=== PATIENT | female | born 1960 | race African-American/Black ===

== ENCOUNTER 2018-03-19 12:51 | Emergency (ER) | payer BC ==
[~2018-03-19] VITALS: Ht 162.6 cm; Wt 54.4 kg
[2018-03-19] MEDS ORDERED: TORADOL IV STA (13:28)
[2018-03-19] MEDS ORDERED: NS 1000ML 1,000 ML STA (13:28)
[2018-03-19 13:31] VITALS: BP 145/92
[2018-03-19 13:41] LABS: BASOPHIL % 0.2 % (0.0-0.2); EOSINOPHIL # 0.1 10^3/uL (0.0-0.2); EOSINOPHIL % 0.9 % (0.0-5.0); HEMOGLOBIN 13.3 g/dL (12.0-15.0); LYMPHOCYTES # 1.5 10^3/uL (1.0-4.8); LYMPHOCYTES % 26.2 % (24.0-44.0); MEAN CELL HGB 26.2 pg (26-34); MEAN CELL HGB CONCENTRATION 34.4 g/dL (33-37); MEAN CORP VOLUME 76.3 fL (78-100); MEAN PLATELET VOLUME 8.8 fL (7.8-11.0); MONOCYTES # 0.6 10^3/uL (0.3-0.8); MONOCYTES % 9.9 % (5.0-12.0); NEUTROPHIL # 3.7 10^3/uL (1.8-7.7); NEUTROPHILS % 62.6 % (41.0-85.0); RED CELL DISTRIBUTION WIDTH 12.7 % (11.5-14.5); WHITE BLOOD CELL 5.9 10^3/uL (4.5-11.0)
[2018-03-19 13:59] LABS: CALCIUM 9.1 mg/dL (8.4-10.5); CARBON DIOXIDE 29.8 mmol/L (20.0-32)
--- NOTE | 2018-03-19 14:18 | DIREP ---
PROCEDURE:XRAY ACUTE ABD INCL UPRIGHT CHEST COMPARISON:[facility], CR, XRAY ACUTE ABD INCL UPRIGHT CHEST, 12/23/2017, 01:07 PM. INDICATIONS:Abdominal pain, back pain TECHNIQUE:Flat and upright views of the abdomen and a PA view of the chest are provided. FINDINGS: LUNGS/PLEURA:Normal. CARDIAC:Normal. MEDIASTINUM:Normal. BONES:Mild scoliosis BOWEL GAS PATTERN: Large stool burden. No air-fluid levels. FREE AIR:None. CALCIFICATIONS:None significant. OTHER:Negative. CONCLUSION:Large stool burden otherwise nonspecific bowel gas pattern. Dictated by: Min Power MD on 03/19/2018 at 02:15 PM
[2018-03-19 14:25] LABS: BILIRUBIN,URINE NEGATIVE (NEGATIVE); UROBILINOGEN,URINE NORMAL (NEGATIVE)
[2018-03-19] MEDS ORDERED: NS 1000ML 1,000 ML ONE (14:26)
[2018-03-19] MEDS ORDERED: TORADOL ONE (14:26)
[2018-03-19 14:28] LABS: APPEARANCE,URINE CLEAR (CLEAR); UA COLOR YELLOW (YELLOW)
--- NOTE | 2018-03-19 14:38 | ER.PDOC ---
General Chief Complaint: Abdomen Pain Stated Complaint: BACK PAIN AND CONSTIPATION Time seen by MD: 13:30 Source: patient Exam Limitations: no limitations History of Present Illness Initial Comments Pt with history of chronic constipation and arthritis, has lower abdominal pain on and off, crampy and has not been defecating properly Severity/Quality: moderate Radiation: no radiation Associated Symptoms: back pain Exacerbated by: movements Allergies: Coded Allergies: No Known Allergies (Unverified , 03/19/18) Vital Signs First Vital Signs Date Time Temp Pulse Resp B/P (MAP) Pulse Ox O2 Delivery O2 Flow Rate FiO2 03/19/18 12:55 98.4 85 16 98 Room Air 98.4 03/19/18 13:31 145/92 (109) Last Vital Signs Date Time Temp Pulse Resp B/P (MAP) Pulse Ox O2 Delivery O2 Flow Rate FiO2 03/19/18 13:31 98.4 85 18 145/92 (109) 98 Room Air 98.4 Past Medical History Medical History: diabetes, other Surgical History: tubal LMP (females 10-50): hysterectomy Social History Smoking: non-smoker Alcohol Use: none Drug Use: none Constitutional: no symptoms reported EENTM: no symptoms reported Respiratory: no symptoms reported Cardiovascular: no symptoms reported Gastrointestinal: see HPI Genitourinary: no symptoms reported Musculoskeletal: see HPI, back pain Skin: no symptoms reported Psychiatric/Neurological: no symptoms reported Endocrine: no symptoms reported Hematologic/Lymphatic: no symptoms reported Physical Exam General Appearance: No Apparent Distress, WD/WN HEENT: PERRL/EOMI, Normal ENT Inspection, TMs Normal, Pharynx Normal Neck: Non-Tender, Full Range of Motion, Supple, Normal Inspection Respiratory: chest non-tender, lungs clear, normal breath sounds, no respiratory distress, no accessory muscle use Cardiovascular: Normal Peripheral Pulses, Regular Rate, Rhythm, No Edema, No Gallop, No JVD, No Murmur Gastrointestinal: Normal Bowel Sounds, Soft, Tenderness (mild llq) Back: Normal Inspection, No CVA Tenderness, No Vertebral Tenderness Extremities: Normal Range of Motion, Non-Tender, Normal Inspection, No Pedal Edema, No Calf Tenderness, Normal Capillary Refill, Pelvis Stable Neurologic/Psychiatric: produce assistant II-XII NML as Tested, No Motor/Sensory Deficits, Alert, Normal Mood/Affect, Oriented x 3 Skin: Normal Color, Warm/Dry Lymphatic: No Adenopathy Results/Orders Results/Orders Laboratory Tests Test 03/19/18 00:00 03/19/18 13:35 Urine Collection Type CCMS Urine Color YELLOW (YELLOW) Urine Appearance CLEAR (CLEAR) Urine Bilirubin NEGATIVE MG/DL (NEGATIVE) Urine Ketones NEGATIVE (NEGATIVE) Urine Specific [place] 1.005 (1.005-1.035) Urine pH 7 (5.0-6.0) Urine Protein NEGATIVE (NEGATIVE) Urine Urobilinogen NORMAL (NEGATIVE) Urine Nitrate NEGATIVE (NEGATIVE) Urine Leukocyte Esterase NEGATIVE (NEGATIVE) Urine Blood NEGATIVE (NEGATIVE) Urine Glucose 1000 (NEGATIVE) White Blood Count 5.9 10^3/uL (4.5-11.0) Red Blood Count 5.07 10^6/uL (4.00-5.20) Hemoglobin 13.3 g/dL (12.0-15.0) Hematocrit 38.7 % (36.0-46.0) Mean Corpuscular Volume 76.3 fL (78-100) Mean Corpuscular Hemoglobin 26.2 pg (26-34) Mean Corpuscular Hemoglobin Concent 34.4 g/dL (33-37) Red Cell Distribution Width 12.7 % (11.5-14.5) Platelet Count 248 10^3/uL (150-400) Mean Platelet Volume 8.8 fL (7.8-11.0) Neutrophils (%) (Auto) 62.6 % (41.0-85.0) Lymphocytes (%) (Auto) 26.2 % (24.0-44.0) Monocytes (%) (Auto) 9.9 % (5.0-12.0) Neutrophils # (Auto) 3.7 10^3/uL (1.8-7.7) Lymphocytes # (Auto) 1.5 10^3/uL (1.0-4.8) Monocytes # (Auto) 0.6 10^3/uL (0.3-0.8) Absolute Immature Granulocyte (auto 0.01 10^3 u/L (0-2) Eosinophils % 0.9 % (0.0-5.0) Basophils % 0.2 % (0.0-0.2) Basophils # 0.0 10^3/uL (0.0-0.1) Eosinophil Count 0.1 10^3/uL (0.0-0.2) Sodium Level 137 mmol/L (132-145) Potassium Level 3.2 mmol/L (3.6-5.2) Chloride Level 103.0 mmol/L (96-109) Carbon Dioxide Level 29.8 mmol/L (20.0-32) Anion Gap 7.4 Blood Urea Nitrogen 10 mg/dL (7-18) Creatinine 0.81 mg/dL (0.59-1.40) Estimated GFR () 87.6 (>/=60) BUN/Creatinine Ratio 12.0 Glucose Level 284 mg/dL (70-110) Calcium Level 9.1 mg/dL (8.4-10.5) Total Bilirubin 0.6 mg/dL (0.2-1.0) Aspartate Amino Transf (AST/SGOT) 11 U/L (0-35) Alanine Aminotransferase (ALT/SGPT) 11 U/L (12-78) Alkaline Phosphatase 70 U/L (50-136) Total Protein 7.0 g/dL (6.4-8.2) Albumin 3.3 g/dL (3.4-5.0) Globulin 3.7 Amylase Level 30 U/L (25-115) Lipase 71 U/L (114-286) Percent Immature Gran (Cell Imm) 0.20 % (0.00-0.50) Administered Medications Medications (Trade) Dose Ordered Sig/Jake Route PRN Reason Start Time Stop Time Status Last Admin Dose Admin Sodium Chloride 1,000 ml @ 1,000 mls/hr Q1H STAT IV 03/19/18 13:28 03/19/18 14:27 DC 03/19/18 14:29 Ketorolac Tromethamine (Toradol) 30 mg STAT STAT IV 03/19/18 13:28 03/19/18 13:30 DC 03/19/18 14:30 Course Vitals & review Data Vital Sign - Last 24 Hours 03/19/18 03/19/18 03/19/18 12:55 12:55 13:31 Temp 98.4 98.4 98.4 98.4 98.4 98.4 Pulse 85 85 85 Resp 16 18 18 B/P (MAP) 145/92 (109) Pulse Ox 98 98 O2 Delivery Room Air Room Air Laboratory Tests Test 03/19/18 00:00 03/19/18 13:35 Urine Collection Type CCMS Urine Color YELLOW Urine Appearance CLEAR Urine Bilirubin NEGATIVE MG/DL Urine Ketones NEGATIVE Urine Specific [place] 1.005 Urine pH 7 Urine Protein NEGATIVE Urine Urobilinogen NORMAL Urine Nitrate NEGATIVE Urine Leukocyte Esterase NEGATIVE Urine Blood NEGATIVE Urine Glucose 1000 White Blood Count 5.9 10^3/uL Red Blood Count 5.07 10^6/uL Hemoglobin 13.3 g/dL Hematocrit 38.7 % Mean Corpuscular Volume 76.3 fL Mean Corpuscular Hemoglobin 26.2 pg Mean Corpuscular Hemoglobin Concent 34.4 g/dL Red Cell Distribution Width 12.7 % Platelet Count 248 10^3/uL Mean Platelet Volume 8.8 fL Neutrophils (%) (Auto) 62.6 % Lymphocytes (%) (Auto) 26.2 % Monocytes (%) (Auto) 9.9 % Neutrophils # (Auto) 3.7 10^3/uL Lymphocytes # (Auto) 1.5 10^3/uL Monocytes # (Auto) 0.6 10^3/uL Absolute Immature Granulocyte (auto 0.01 10^3 u/L Eosinophils % 0.9 % Basophils % 0.2 % Basophils # 0.0 10^3/uL Eosinophil Count 0.1 10^3/uL Sodium Level 137 mmol/L Potassium Level 3.2 mmol/L Chloride Level 103.0 mmol/L Carbon Dioxide Level 29.8 mmol/L Anion Gap 7.4 Blood Urea Nitrogen 10 mg/dL Creatinine 0.81 mg/dL Estimated GFR () 87.6 BUN/Creatinine Ratio 12.0 Glucose Level 284 mg/dL Calcium Level 9.1 mg/dL Total Bilirubin 0.6 mg/dL Aspartate Amino Transf (AST/SGOT) 11 U/L Alanine Aminotransferase (ALT/SGPT) 11 U/L Alkaline Phosphatase 70 U/L Total Protein 7.0 g/dL Albumin 3.3 g/dL Globulin 3.7 Amylase Level 30 U/L Lipase 71 U/L Percent Immature Gran (Cell Imm) 0.20 % Departure Time of Disposition: 14:37 Disposition: 01 HOME, SELF-CARE Impression: Primary Impression: Constipation Condition: Stable Patient Instructions: Constipation, Adult, [id number] Referrals: PCP,UNKNOWN (PCP) PRIMARY CARE PROVIDER Duration or Time Spent with Pa: GEETA WALKER MD Mar 19, 2018 14:38
[2018-03-19 15:54] VITALS: BP 169/97
[2018-03-19 16:15] VITALS: BP 169/97
== END 2018-03-19 16:05 | disposition home or self-care (01) ==
LOC: ER 12:51
DX: K59.00 Constipation, unspecified (principal); E11.9 Type 2 diabetes mellitus without complications; Z90.710 Acquired absence of both cervix and uterus; Z98.51 Tubal ligation status
CPT/HCPCS: 36415; 74022; 80053; 81002; 82150; 83690; 85025; 96374; 99285; J1885; J7030; 96361